=== PATIENT | female | born 1985 | race Caucasian/White ===

== ENCOUNTER 2016-10-02 15:24 | Emergency (ER) | payer SELFPAY ==
[2016-10-02 15:44] VITALS: BP 122/72
--- NOTE | 2016-10-02 15:47 | ER Document Report ---
ED Medical Screen (RME) - General Stated Complaint: LOWER RIGHT JAW SWELLING Notes: 31 yo female c/o pain and swelling to right lower jaw. started as a "bump", squeezed it last night. swelling and pain increased today TRAVEL OUTSIDE OF THE [place] IN LAST 30 DAYS: No - Related Data Allergies/Adverse Reactions: Sulfa (Sulfonamide Antibiotics) Allergy (Severe, Verified 04/08/14 11:31) Anaphylaxis aspirin [Aspirin] Allergy (Intermediate, Verified 04/08/14 11:31) Hives doxycycline [Doxycycline] Allergy (Intermediate, Verified 08/28/13 16:24) severe nausea and vomiting Past Medical History Pulmonary Medical History: Reports: Hx Bronchitis, Hx Pneumonia Renal/ Medical History: Reports: Hx Kidney Stones Musculoskeltal Medical History: Reports Hx Musculoskeletal Deformity - scoliosis Psychiatric Medical History: Denies: Hx Attention Deficit Hyperactivity Disorder Past Surgical History: Reports: Hx Tubal Ligation - Immunizations Hx Diphtheria, Pertussis, Tetanus Vaccination: Yes - 2010 Physical Exam - Vital signs Vitals: Temp Pulse Resp BP Pulse Ox 98.3 F 108 H 16 122/72 100 10/02/16 15:42 10/02/16 15:42 10/02/16 15:42 10/02/16 15:42 10/02/16 15:42 Course - Vital Signs Vital signs: Temp Pulse Resp BP Pulse Ox 98.3 F 108 H 16 122/72 100 10/02/16 15:42 10/02/16 15:42 10/02/16 15:42 10/02/16 15:42 10/02/16 15:42
== END 2016-10-02 19:45 | disposition left against medical advice (07) ==
LOC: ER 15:24
DX: R22.0 Localized swelling, mass and lump, head (principal); Z88.2 Allergy status to sulfonamides; Z88.6 Allergy status to analgesic agent; Z87.442 Personal history of urinary calculi; Z98.51 Tubal ligation status
CPT/HCPCS: 99281

== ENCOUNTER 2017-12-05 21:14 | Emergency (ER) | payer SELFPAY ==
[2017-12-05] MEDS ORDERED: ONDANSETRON 4 MG TAB.RAPDIS PO ONE (22:28)
[2017-12-05] MEDS ORDERED: IPRATROPIUM/ALBUTEROL 0.5-2.5 MG/3 ML AMPUL NEB ONE (22:28)
--- NOTE | 2017-12-05 22:29 | ER Document Report ---
HPI - HPI Patient complains to provider of: Cough Onset: Other - 10 days Onset/Duration: Persistent Quality of pain: Achy Pain Level: 4 Context: Patient presents complaining of nonproductive cough for the past 10 days. Patient does report that she has had some nausea and vomiting 4 episodes today. Patient reports fever from 101-104 off and on over the past week. Patient does complain of some lower pelvic pain. She denies vaginal bleeding or discharge. Associated Symptoms: Body/muscle aches, Nonproductive cough, Fever, Nausea, Vomiting Exacerbated by: Denies Relieved by: Denies Similar symptoms previously: No Recently seen / treated by doctor: No - ROS ROS below otherwise negative: Yes Systems Reviewed and Negative: Yes All other systems reviewed and negative - CONSTITUTIONAL Constitutional: REPORTS: Fever. DENIES: Chills - EENT EENT: REPORTS: Congestion. DENIES: Sore Throat, Ear Pain, Eye problems - CARDIOVASCULAR Cardiovascular: DENIES: Chest pain - RESPIRATORY Respiratory: REPORTS: Coughing. DENIES: Trouble Breathing - GASTROINTESTINAL Gastrointestinal: REPORTS: Abdominal Pain, Nausea, Patient vomiting. DENIES: Diarrhea - REPRODUCTIVE Reproductive: DENIES: : - MUSCULOSKELETAL Musculoskeletal: DENIES: Back Pain - DERM Skin Color: Normal Skin Problems: None Past Medical History - General Information source: Patient - Social History Smoking Status: Former Smoker Chew tobacco use (# tins/day): No Frequency of alcohol use: Occasional Drug Abuse: Marijuana Occupation: Housekeeping Lives with: Family Family History: Arthritis, Malignancy, Thyroid Disfunction, Other - Irritable bowel syndrome Patient has suicidal ideation: No Patient has homicidal ideation: No Pulmonary Medical History: Reports: Hx Bronchitis, Hx Pneumonia Renal/ Medical History: Reports: Hx Kidney Stones. Denies: Hx Peritoneal Dialysis Musculoskeltal Medical History: Reports Hx Musculoskeletal Deformity - scoliosis Psychiatric Medical History: Denies: Hx Attention Deficit Hyperactivity Disorder Past Surgical History: Reports: Hx Tubal Ligation - Immunizations Hx Diphtheria, Pertussis, Tetanus Vaccination: Yes - 2010 Vertical Provider Document - CONSTITUTIONAL Agree With Documented VS: Yes Exam Limitations: No Limitations General Appearance: WD/WN, No Apparent Distress - INFECTION CONTROL TRAVEL OUTSIDE OF THE [place] IN LAST 30 DAYS: No - HEENT HEENT: Atraumatic, Normal ENT Exam, Normocephalic - NECK Neck: Normal Inspection, Supple. negative: Lymphadenopathy-Left, Lymphadenopathy-Right - RESPIRATORY Respiratory: No Respiratory Distress, Rhonchi, Wheezing - CARDIOVASCULAR Cardiovascular: Regular Rate, Regular Rhythm, No Murmur - GI/ABDOMEN Gastrointestinal: Abdomen Non-Tender, Abdomen Tender - Suprapubic, No Organomegaly. negative: Abdominal Guarding, Abnormal Bowel Sounds - BACK Back: Normal Inspection. negative: CVA Tenderness-Right, CVA Tenderness-Left - MUSCULOSKELETAL/EXTREMETIES Musculoskeletal/Extremeties: MAEW - NEURO Level of Consciousness: Awake, Alert, Appropriate Motor/Sensory: No Motor Deficit - DERM Integumentary: Warm, Dry, No Rash Course - Re-evaluation Re-evalutation: 12/05/17 23:54 Patient with decreased cough frequency after nebulizer treatment. Patient with good air movement. Patient states she is feeling better after the nebulizer treatment. Patient advised of pneumonia found on x-ray. Patient not tachycardic nor hypoxic, no concern for sepsis at this time. Good return precautions given. - Vital Signs Vital signs: Temp Pulse Resp BP Pulse Ox 98.6 F 96 16 116/86 H 98 12/05/17 21:46 12/05/17 21:46 12/05/17 21:46 12/05/17 21:46 12/05/17 21:46 - Diagnostic Test Radiology reviewed: Image reviewed, Reports reviewed Discharge - Discharge Clinical Impression: Pneumonia Qualifiers: Pneumonia type: due to unspecified organism Laterality: right Lung location: middle lobe of lung Qualified Code(s): J18.1 - Lobar pneumonia, unspecified organism Condition: Stable Disposition: HOME, SELF-CARE Additional Instructions: Return immediately for any new or worsening symptoms Followup with your primary care provider, call tomorrow to make a followup appointment PNEUMONIA: Your examination indicates that you have pneumonia. This is an infection of the lung tissue, usually caused by bacteria or a virus. Symptoms include cough, fever, shaking chills, chest pain, shortness of breath, and coughing up bloody sputum. Treatment for bacterial pneumonia includes rest, antibiotics for 10 to 14 days, increasing your clear liquid intake, a cool mist humidifier at your bedside, and fever medication. Often, a repeat chest X-ray is performed in a few weeks--even if you feel better--to ascertain whether the infection has completely resolved and no underlying lung problem is present. You should call the physician if you develop persistent vomiting, high fever that does not respond to fever medication, increasing shortness of breath , confusion, or lethargy. Also, failure to improve within two to three days is an indication for re-examination. ANTIBIOTIC INJECTION: You have been given an antibiotic injection. Sometimes the injection must be combined with antibiotic pills. For some infections, the shot provides all the antibiotic that's needed. Common side effects of antibiotics include nausea, intestinal cramping, or diarrhea. These are very unusual following a shot. Women may develop vaginal yeast infections, and babies can get yeast ( thrush) in the mouth following the use of antibiotics. Contact your physician if you develop significant side effects from this medication. Allergy to this antibiotic can result in hives, wheezing, faintness, or itching. If symptoms of allergy occur, call the doctor at once. ROCEPHIN: You have been given an injection of an antibiotic called Rocephin ( ceftriaxone). Sometimes the injection must be combined with antibiotic pills. For some infections, such as an uncomplicated ear infection, Rocephin provides all the antibiotic that's needed. The antibiotic will be in your body for about two days. For serious infections, we usually repeat doses of Rocephin daily. Side effects are very unusual following a shot. Women may develop vaginal yeast infections, and babies can get yeast (thrush) in the mouth following the use of antibiotics. Contact your physician if you have symptoms with this medication. Allergy to this antibiotic can result in hives, wheezing, faintness, or itching. If symptoms of allergy occur, call the doctor at once. ANTIBIOTIC THERAPY: You have been given an antibiotic prescription. It's important that you take all the medication, unless instructed otherwise by your physician. Failure to complete the entire course can result in relapse of your condition. Common side effects of antibiotics include nausea, intestinal cramping, or diarrhea. Women may develop vaginal yeast infections, and babies can get yeast (thrush) in the mouth following the use of antibiotics. Contact your physician if you develop significant side effects from this medication. Allergy to this antibiotic can result in hives, wheezing, faintness, or itching. If symptoms of allergy occur, stop the medication and call the doctor. AZITHROMYCIN: Azithromycin (Zithromax) is a broad spectrum antibiotic in the same class as erythromycin. It can treat a variety of bacterial infections, but is most frequently used for respiratory infections. Azithromycin is extremely long-lasting. It accumulates in body tissues and continues to kill bacteria for many days. In order to improve absorption, Azithromycin should be taken at least one hour before or two hours after a meal. It does not have the same strong tendency to upset the stomach as erythromycin and is usually very well tolerated. Patients who have had a rash or other true allergic reactions to erythromycin should not take this medication. Call if you develop gastrointestinal distress, severe diarrhea, rash, hives, itching, or shortness of breath. AMOXICILLIN: Amoxicillin is a member of the penicillin family. It covers the germs likely to cause ear, bronchial, and urinary infections better than plain penicillin. Amoxicillin can be taken without regard to meals. Nausea after taking the medication is rare, but can occur. Diarrhea can occur, particularly in small children. Vaginal yeast infections and oral thrush in infants are also common. Contact your physician if these problems occur. Allergy to penicillins is common. If you have had an allergic reaction to any drug of the penicillin family, you should never take any other penicillin. Notify your doctor at once if you develop hives, itching, swelling, faintness, or shortness of breath. Less serious side effects can include nausea or diarrhea. USE OF ACETAMINOPHEN (Tylenol): Acetaminophen may be taken for pain relief or fever control. It's much safer than aspirin, offering a wider range of "safe" dosages. It is safe during . Some brand names are Tylenol, Panadol, Datril, Anacin 3, Tempra, and Liquiprin. Acetaminophen can be repeated every four hours. The following are maximum recommended dosages: WEIGHT Dose Drops Elixir Chewable( 80mg) (LBS.) drprs=droppers tsp=teaspoon >89 pounds or adults 650 mg to 900 mg Acetaminophen can be repeated every four hours. Maximum dose not to exceed 4000 mg a day. These maximum recommended dosages are slightly higher than the dosages written on the product container, but these dosages are very safe and below the toxic dosage for acetaminophen. FOLLOW-UP CARE: If you have been referred to a physician for follow-up care, call the physician s office for an appointment as you were instructed or within the next two days. If you experience worsening or a significant change in your symptoms, notify the physician immediately or return to the Emergency Department at any time for re-evaluation. Prescriptions: Amoxicillin 500 mg PO TID #30 tablet Azithromycin [Zithromax 250 mg Tablet] 250 mg PO DAILY 4 Days tablet Forms: Return to Work Referrals: [facility] [Provider Group] - Follow up as needed
[2017-12-05] MEDS ORDERED: CEFTRIAXONE INJ 1000 MG VIAL IM ONE (23:12)
[2017-12-05] MEDS ORDERED: LIDOCAINE 1% INJ-PF (10 MG/ML) 30 ML SDV INJ ONE (23:12)
[2017-12-05] MEDS ORDERED: AZITHROMYCIN 250 MG TABLET PO ONE (23:18)
--- NOTE | 2017-12-05 23:20 | RADIOLOGY REPORT (SQ) ---
EXAM DESCRIPTION: XR CHEST 2 VIEWS CLINICAL HISTORY: 32 years Female, fever, cough COMPARISON: None. FINDINGS: Adequate lung volume, moderate streaky opacity of the right middle lobe., normal cardiac silhouette, and mild scoliosis. IMPRESSION: Right middle lobar pneumonia.
[2017-12-05 23:56] LABS: APPEARANCE,URINE CLEAR; BILIRUBIN,URINE NEGATIVE (NEGATIVE); COLOR,URINE COLORLESS; GLUCOSE, URINE NEGATIVE (NEGATIVE); KETONES,URINE NEGATIVE (NEGATIVE); LEUKOCYTE ESTERASE,URINE NEGATIVE (NEGATIVE); NITRITE,URINE NEGATIVE (NEGATIVE); PROTEIN,URINE NEGATIVE (NEGATIVE); UROBILINOGEN,URINE NEGATIVE mg/dL (<2.0)
[2017-12-06] MEDS ORDERED: ALBUTEROL SULFATE HFA (90 MCG/PUFF) 8 GM MDI (1 MDI/ER DISP) IH ONE
[2017-12-06 00:58] VITALS: BP 116/55
== END 2017-12-06 00:58 | disposition home or self-care (01) ==
LOC: ER 21:14
DX: J18.1 Lobar pneumonia, unspecified organism (principal); R05 Cough; R11.2 Nausea with vomiting, unspecified; R50.9 Fever, unspecified; R10.9 Unspecified abdominal pain; Z87.891 Personal history of nicotine dependence
CPT/HCPCS: 94640; 99283; 96372; 81025; 81001; 71046; S0119; J3490 ×2; J0696; J7620

== ENCOUNTER 2018-07-31 23:32 | Emergency (ER) | payer SELFPAY ==
[2018-07-31 23:41] VITALS: BP 116/71
== END 2018-08-01 02:42 | disposition left against medical advice (07) ==
LOC: ER 23:32
DX: Z53.21 Procedure and treatment not carried out due to patient leaving prior to being seen by health care provider (principal)